=== PATIENT | male | born 1965 | race Caucasian/White ===

== ENCOUNTER 2020-09-14 18:10 | Emergency (ER) | payer OTHER ==
[~2020-09-14 18:10] MED LIST: CYCLOBENZAPRINE10 MG PO; DICLOFENAC SODI75 MG PO; MEDROL 4MG DOSEP4 MG PO; NORCO 5-325 TA1 EACH PO; PERCOCET 5-3251 EACH PO
[2020-09-14 20:08] LABS: INR 1.12 (0.9-1.2); PROTHROMBIN TIME 13.7 SECONDS (11.4-13.6)
[2020-09-14 20:24] LABS: ALBUMIN 3.1 g/dL (3.4-5.0); BILIRUBIN - DIRECT 0.1 mg/dL (0.00-0.20); BILIRUBIN - TOTAL 0.5 mg/dL (0.2-1.0); BUN/CREAT RATIO (CALC) 21.3 RATIO; C-REACTIVE PROTEIN 16.1 mg/dL (<=0.90); CREATININE 0.89 mg/dL (0.67-1.17); GLOBULIN (CALCULATION) 3.5 g/dL; POTASSIUM 4.1 mmol/L (3.5-5.1); TOTAL PROTEIN 6.6 g/dL (6.4-8.2)
[2020-09-14 20:43] LABS: CORONAVIRUS 2019 SARS-COV-2 NEGATIVE (NEGATIVE); INFLUENZA A NAA NEGATIVE (NEGATIVE)
[2020-09-14] MEDS ORDERED: VENTOLIN HFA18 GM INH (21:20)
[2020-09-14] MEDS ORDERED: VIBRAMYCIN100 MG PO (21:20)
[2020-09-14] MEDS ORDERED: HYCODAN5 ML PO (21:20)
[2020-09-14] MEDS ORDERED: NAPROXEN500 MG PO (21:20)
== END 2020-09-14 21:23 | disposition home or self-care (01) ==
LOC: FER 18:10
PROVIDERS: Emergency Medicine
DX: J11.08 Influenza due to unidentified influenza virus with specified pneumonia (principal); J18.0 Bronchopneumonia, unspecified organism; F17.210 Nicotine dependence, cigarettes, uncomplicated; Z20.822 Contact with and (suspected) exposure to COVID-19; Z88.6 Allergy status to analgesic agent
CPT/HCPCS: 36415; 71250; 80048; 80076; 82728; 83605; 83615; 84145; 85610; 86140; 87880; J0696; J1885; J7030; U0002